=== PATIENT | male | born 1950 | race Caucasian/White ===

== ENCOUNTER 2016-12-15 09:00 | Inpatient (IN) ==
--- NOTE | 2016-12-11 14:10 | Cardiothoracic History & Phys ---
History of Present Illness Chief complaint: chest pain History of present illness: Mr. seals is a 56 year old male hospital with complaints of recent onset as part of his workup he underwent cardiac catheterization demonstrating critical coronary artery disease of significance is that he has a history of hypertension and hyperglycemia and hyperlipidemia. He also has type 2 diabetes mellitus. Past medical history: Medical diseases as noted in history of present illness: The patient has no significant surgical history. Patient is a lifetime nonsmoker and nondrinker. He does have a positive family history for premature coronary disease. He has no known allergies. Physical examination: Patient is well-developed well-nourished white male in no acute distress. Examination HEENT show the pupils are equal and react to light and extraocular motions are intact. The oropharynx is benign. Examination of the neck shows no masses and there is no thyromegaly or are there any bruits. Examination the chest shows that it is clear to percussion and auscultation and examination the heart reveals a regular sinus rhythm with no murmurs and no gallop rhythm. Examination the abdomen shows that it is soft and nontender and there is no organomegaly and there are no masses. Examination extremities shows there is no cyanosis or edema and a neurological examination is grossly within normal limits. The assessment: Coronary artery disease. Plan: Coronary artery bypass surgery on 12/16/2016
[~2016-12-15 09:00] MED LIST: DEXTROSE 50% 25 GM/50 ML VIAL IV PRN; GLUCAGON 1 MG VIAL IM PRN
--- NOTE | 2016-12-15 12:07 | EKG Report ---
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
[2016-12-15] MEDS: LISINOPRIL/HCTZ 10-12.5 MG TABLET PO SCH (12:36)
[2016-12-15] MEDS: SODIUM CHLORIDE 0.9% 1,000 ML IV SCH ×2 (12:36→14:57)
[2016-12-15 13:54] LABS: Basophils # 0.1 10*3/uL (0.0-0.2); Basophils % 1.1 % (0.0-0.8); Eosinophils # 0.4 10*3/uL (0.0-0.87); Eosinophils % 5.6 % (0.00-10.9); Hemoglobin 14.8 GM/DL (14.0-18.0); Immature Granulocytes % 0.3 %; Immature Granulocytes Absolute 0.02 #; Lymphocytes # 1.5 10*3/uL (1.4-4.0); Lymphocytes % 22.6 % (21.2-54.2); Mean Corpuscular HGB Conc 33.6 GM/DL (32-36); Mean Corpuscular Hemoglobin 29 PG (27-34); Mean Corpuscular Volume 87.5 FL (87-102); Monocytes # 0.4 10*3/uL (0.11-0.8); Monocytes % 6.5 % (1.7-12.7); Neutrophils # 4.3 10*3/uL (1.4-7.4); Neutrophils % 63.9 % (38.7-73.9); Platelet Count 206 T/CUMM (130-400); Red Blood Count 5.03 MC/CUMM (3.8-5.5); Red Cell Distribution Width 12.4 % (9.3-17.3); White Blood Count 6.6 T/CUMM (4-12)
[2016-12-15 14:10] LABS: ABG Base Excess 2.2 MMOL/L (-2.5-2.5); ABG Oxygen Saturation 95.4 % (95-100); ABG PH 7.453 (7.35-7.45); ABG PO2 77.2 MM HG (80-95); ABG TCO2 27.2 MMOL/L (23-27)
[2016-12-15] MEDS ORDERED: ACETAMINOPHEN 325 MG TABLET PO PRN (14:34)
[2016-12-15] MEDS ORDERED: oxyCODONE/ACETAMINOPHEN 5-325 MG TABLET PO PRN (14:34)
[2016-12-15] MEDS: CHLORHEXIDINE 4% SOLN 118 ML BOTTLE TOP SCH ×2 (14:56→20:56)
--- NOTE | 2016-12-15 15:43 | XRay Report ---
XR chest 2V Date: 12/15/2016 2:19 PM History: Coronary artery disease Comparison: None Technique: PA and lateral chest Findings: The heart is normal in size with calcification in the aortic knob. Calcified granulomata/nodes with probable minimal chronic scarring. Faint nipple shadow in the right lower lung zone. Unremarkable mediastinum with bridging anterior osteophytes. Impression: Evidence of granulomatous disease. No acute cardiopulmonary pathology identified. DISH. PROCEDURE INTERPRETED AT [facility] DEPARTMENT OF RADIOLOGY Final Report Signed by: Dr. Julia Potter
[2016-12-15] MEDS: METOPROLOL TARTRATE 25 MG TABLET PO SCH (20:55)
[2016-12-15] MEDS: CHLORHEXIDINE 0.12% ORAL RINSE 60 ML BOTTLE SWISH/SPIT SCH (20:56)
[2016-12-16] MEDS ORDERED: VANCOMYCIN 1,000 MG VIAL ONE (04:34)
[2016-12-16] MEDS ORDERED: PAPAVERINE 60 MG/2 ML VIAL ONE (04:34)
[2016-12-16 05:27] LABS: Partial Thromboplastin Time 27.4 SECS (0-40)
[2016-12-16] MEDS: METOPROLOL TARTRATE 25 MG TABLET PO SCH ×2 (05:31→10:14)
[2016-12-16] MEDS: LISINOPRIL/HCTZ 10-12.5 MG TABLET PO SCH ×2 (05:31→10:15)
[2016-12-16 05:32] LABS: Albumin 3.5 G/DL (3.4-5.0); Bilirubin,Total 1.5 MG/DL (0.2-1.0); Calcium 8.7 MG/DL (8.5-10.1); Osmolality,Calculated 293.8 MOS/KG (273-304); Potassium 4.3 MMOL/L (3.5-5.1); Total Protein 6.2 G/DL (6.4-8.3)
[2016-12-16] MEDS ORDERED: CEFUROXIME INJ 1,500 MG in SODIUM CHLORIDE 0.9% 100 ML IV ONE (06:00)
[2016-12-16] MEDS ORDERED: LORazepam 1 MG TABLET PO ONE (06:05)
[2016-12-16] MEDS ORDERED: LORazepam 1 MG TABLET ONE (06:06)
[2016-12-16] MEDS: CHLORHEXIDINE 4% SOLN 118 ML BOTTLE TOP SCH ×2 (06:37→10:14)
[2016-12-16] MEDS: CHLORHEXIDINE 0.12% ORAL RINSE 60 ML BOTTLE SWISH/SPIT SCH ×3 (06:37→20:25)
[2016-12-16] MEDS ORDERED: NITROGLYCERIN 50 MG/250 ML BOTTLE IV ONE (06:44)
[2016-12-16] MEDS ORDERED: PHENYLEPHRINE 20 MG/250 ML PREMIX IV ONE (06:44)
[2016-12-16] MEDS ORDERED: HEPARIN/NACL 0.9% 2 UNITS/ML 500 ML IV ONE ×2 (06:44→12:21)
[2016-12-16] MEDS ORDERED: MINERAL OIL/PETROLATUM OPH OINT 3.5 GM TUBE ONE ×2 (06:44→12:22)
[2016-12-16] MEDS ORDERED: CALCIUM CHLORIDE 1,000 MG/10 ML SYRINGE IV ONE ×3 (06:44→12:21)
[2016-12-16] MEDS ORDERED: VECURONIUM 10 MG VIAL IV ONE ×2 (06:44→12:22)
[2016-12-16] MEDS ORDERED: ETOMIDATE 20 MG/10 ML VIAL IV ONE ×2 (06:44→12:23)
[2016-12-16] MEDS ORDERED: AMINOCAPROIC ACID 5,000 MG/20 ML VIAL IV ONE ×2 (06:44→12:23)
[2016-12-16 07:40] LABS: ABG Base Excess 0.4 MMOL/L (-2.5-2.5); ABG HCO3 24.8 MMOL/L (20-26); ABG Oxygen Saturation 99.5 % (95-100); ABG PCO2 39.8 MM HG (35-48); ABG PH 7.407 (7.35-7.45); ABG TCO2 21.5 MMOL/L (23-27); Glucose Heart Surgery 279 MG/DL (74-106); Hematocrit Heart Surgery 43.7 PERCENT (42-52); Hemoglobin Heart Surgery 14.2 G/DL (14.0-18.0); Ionized Calcium Arterial 1.15 MMOL/L (1.21-1.46); PCO2 Patient Temp Arterial 39.8 MMHG; PH Patient Temp Arterial 7.407; Patient Temperature 37 CELCIUS; Potassium Heart/CVR 4.1 MMOL/L (3.5-5.1); Sodium Heart/CVR 135 MMOL/L (135-145)
[2016-12-16 07:48] LABS: Apearance,Urine CLEAR (Clear); Bilirubin,Urine Negative (Negative); Blood, Urine Small mg/dL (Negative); Glucose,Urine (UA) >=500 mg/dL (Negative); Ketones,Urine 5 mg/dL (Negative); Mucus,Urine Occasional /LPF (Occasional); Nitrite,Urine Negative (Negative); Protein,Urine Negative; RBC,Urine 8 /HPF (0-4); Urine Color Yellow (Yellow); Urine Urobilinogen < 2.0 EU/DL (0.2-1.0); WBC,Urine <1 /HPF (0-6)
[2016-12-16] MEDS ORDERED: PHENYLEPHRINE DRIP 40 MG/250 ML PREMIX IV ONE (08:46)
[2016-12-16] MEDS ORDERED: NITROPRUSSIDE 50 MG/2 ML VIAL ONE (08:46)
[2016-12-16] MEDS ORDERED: POTASSIUM CHLORIDE RIDER 100 ML IV ONE (08:46)
[2016-12-16] MEDS ORDERED: ALBUMIN 5% 12.5 GM/250 ML VIAL IV ONE (08:47)
[2016-12-16] MEDS ORDERED: SODIUM BICARBONATE 50 MEQ/50 ML SYRINGE IV ONE ×2 (08:47→10:47)
[2016-12-16 09:28] LABS: Hematocrit Heart Surgery 35.1 PERCENT (42-52); Hemoglobin Heart Surgery 11.4 G/DL (14.0-18.0); PCO2 Patient Temp Venous 42.5 MM HG; PH Patient Temp Venous 7.397; PO2 Patient Temp Venous 36.9 MM HG; Potassium Heart/CVR 5.1 MMOL/L (3.5-5.1); VBG Base Excess 1.1 MEQ/L (0-4); VBG Oxygen Saturation 77.5 %; VBG PCO2 46.8 MMHG (41-51); VBG PH 7.368; VBG PO2 42.4 MMHG (17-40)
[2016-12-16] MEDS ORDERED: INSULIN REGULAR 100 UNIT/ML ONE (09:44)
[2016-12-16 10:06] LABS: Hematocrit Heart Surgery 36.3 PERCENT (42-52); Hemoglobin Heart Surgery 11.8 G/DL (14.0-18.0); PH Patient Temp Venous 7.395; PO2 Patient Temp Venous 35.2 MM HG; Potassium Heart/CVR 4.4 MMOL/L (3.5-5.1); VBG Base Excess 1.2 MEQ/L (0-4); VBG Oxygen Saturation 71.3 %; VBG PCO2 45.2 MMHG (41-51); VBG PH 7.381; VBG PO2 37.8 MMHG (17-40)
[2016-12-16 10:43] LABS: ABG Base Excess -1.1 MMOL/L (-2.5-2.5); ABG HCO3 23.5 MMOL/L (20-26); ABG Oxygen Saturation 99.5 % (95-100); ABG PH 7.336 (7.35-7.45); ABG TCO2 22.4 MMOL/L (23-27); Glucose Heart Surgery 258 MG/DL (74-106); Hematocrit Heart Surgery 37.5 PERCENT (42-52); Hemoglobin Heart Surgery 12.2 G/DL (14.0-18.0); Ionized Calcium Arterial 1.24 MMOL/L (1.21-1.46); PH Patient Temp Arterial 7.336; Patient Temperature 37 CELCIUS; Potassium Heart/CVR 4.6 MMOL/L (3.5-5.1); Sodium Heart/CVR 133 MMOL/L (135-145)
[2016-12-16] MEDS ORDERED: PROTAMINE SULFATE 250 MG/25 ML VIAL IV ONE (10:47)
[2016-12-16] MEDS ORDERED: MAGNESIUM SULFATE 1 GM/2 ML VIAL ONE (10:47)
[2016-12-16] MEDS ORDERED: HEPARIN 10,000 UNIT/10 ML VIAL ONE ×2 (10:47→10:51)
[2016-12-16] MEDS ORDERED: ALBUMIN 25% 25 GM/100 ML VIAL IV ONE (10:47)
[2016-12-16] MEDS ORDERED: DEXTROSE 5% KCL 20 MEQ 20 MEQ/1,000 ML BAG IV ONE (10:47)
[2016-12-16] MEDS ORDERED: PHENYLEPHRINE DRIP 20 MG/250 ML PREMIX IV ONE ×2 (10:47→12:21)
[2016-12-16] MEDS ORDERED: FUROSEMIDE 20 MG/2 ML VIAL ONE (10:48)
[2016-12-16] MEDS ORDERED: MANNITOL 12.5 GM/50 ML VIAL IV ONE (10:48)
[2016-12-16] MEDS ORDERED: PROTAMINE SULFATE 50 MG/5 ML VIAL IV ONE (10:48)
[2016-12-16] MEDS ORDERED: methylPREDNISolone SOD SUC 1,000 MG/8 ML VIAL ONE (10:48)
[2016-12-16] MEDS ORDERED: INSULIN REGULAR DRIP 100 ML IV ONE (11:00)
[2016-12-16] MEDS ORDERED: MORPHINE 10 MG/1 ML VIAL IV PRN (11:20)
[2016-12-16] MEDS ORDERED: MAGNESIUM SULF RIDER 4 GM in PREMIX 1 EACH IV PRN (11:20)
[2016-12-16] MEDS ORDERED: CALCIUM CHLORIDE 1,000 MG/10 ML SYRINGE IV PRN (11:20)
[2016-12-16] MEDS ORDERED: MIDAZOLAM 10 MG/2 ML VIAL IV PRN (11:20)
[2016-12-16] MEDS ORDERED: DEXTROSE 50% 25 GM/50 ML VIAL IV PRN ×2 (11:20)
[2016-12-16] MEDS ORDERED: MORPHINE 2 MG/1 ML SYRINGE IV PRN (11:20)
[2016-12-16] MEDS ORDERED: ONDANSETRON 4 MG/2 ML VIAL IV PRN (11:20)
[2016-12-16] MEDS ORDERED: VECURONIUM 10 MG VIAL IV PRN ×2 (11:20)
[2016-12-16] MEDS ORDERED: NITROPRUSSIDE 100 MG in DEXTROSE 5% 250 ML IV PRN (11:20)
[2016-12-16] MEDS ORDERED: MAGNESIUM SULF RIDER 2 GM in PREMIX 1 EACH IV PRN (11:20)
[2016-12-16] MEDS ORDERED: LACTATED RINGERS 250 ML IV PRN (11:20)
[2016-12-16] MEDS ORDERED: ACETAMINOPHEN 650 MG SUPP RECTAL PRN (11:20)
[2016-12-16] MEDS ORDERED: PHENYLEPHRINE DRIP 40 MG/250 ML PREMIX IV PRN (11:20)
[2016-12-16] MEDS ORDERED: INSULIN REGULAR 100 UNIT/ML IV ONE (11:20)
[2016-12-16] MEDS ORDERED: MIDAZOLAM 2 MG/2 ML VIAL IV PRN (11:20)
--- NOTE | 2016-12-16 11:27 | Operative Note ---
Date of procedure: 12/16/16 Pre-op diagnosis: coronary artery disease Post-op diagnosis: same Procedure: Procedure: Coronary bypass grafting 2 with saphenous vein graft to the obtuse marginal and right coronary arteries. Findings: Patient is 66-year-old man who presented to [facility] with substernal chest discomfort. Cardiac catheterization demonstrated critical disease of the right coronary artery and circumflex marginal coronary artery with only minimal to moderate disease of the anterior descending coronary artery. At the time of surgery left ventricular function function was normal and 2 saphenous vein grafts were placed to a large obtuse marginal and a large main right coronary artery which were both relatively free of disease at the site of anastomosis. Patient tolerated procedure well and returned recovery in satisfactory condition. Procedure: Patient was brought to the operating room placed on the operating table in the supine position. After satisfactory induction of general anesthesia the chest abdomen and legs were prepped and draped in sterile fashion. Greater saphenous vein was harvested from each lower leg and prepared as an arterial graft. The incisions in the leg were closed with 3-0 subcutaneous Monopril and 3-0 subcuticular Monocryl. Standard sternotomy incision was made and the sternum was divided and the heart suspended in a pericardial cradle. The heart was prepared for cardiopulmonary bypass with systemic heparinization and cannulation of the ascending aorta and right atrium. Cardiopulmonary bypass was begun and the aorta was crossclamped and the heart arrested with cardioplegia solution injected into the aortic root. Heart was protected during the period of crossclamping with topical saline slush. After completion of the distal anastomoses described above the aorta was unclamped reestablishing cardiac action. Proximal anastomoses were constructed between the inflow ends of the grafts and the ascending aorta. Patient was with then weaned from cardiopulmonary bypass without difficulty. Heparin effect was reversed with protamine and decannulation carried out with the defects in the ascending aorta and right atrium closed with 3-0 Prolene. Heparin effect was reversed with protamine as noted above and the operative field inspected for hemostasis when this was considered adequate the incision was closed with interrupted stainless steel wire and the sternum and 0 Monopril and the presternal fascia. Skin was closed with 3-0 subcuticular Monocryl. 2 chest tubes were left in the anterior mediastinum and brought out through separate stab incisions. Patient was returned to recovery in satisfactory condition. Anesthesia: GETA Surgeon / Physician: Chris Gama Estimated blood loss: other Specimens: none sent (unable to determine because of cardiopulmonary bypass) Condition: stable Disposition: ICU Results - Labs CBC & BMP: 12/16/16 10:42 12/16/16 04:12 Discharge Plan - Discharge Medications No Action hydrALAZINE TAB [Apresoline Tab] 25 mg PO TID Metoprolol Tartrate Tab [Lopressor Tab] 25 mg PO BID Isosorbide Mononitrate [Imdur] 30 mg PO DAILY Rosuvastatin Calcium [Crestor] 5 mg PO BEDTIME Lisinopril/Hydrochlorothiazide [Lisinopril-Hctz 10-12.5 mg Tab] 2 tablet PO DAILY - Follow Up or Referral - Forms/Instructions
[2016-12-16] MEDS: SODIUM CHLORIDE 0.45% 1,000 ML IV SCH ×2 (11:30)
[2016-12-16 11:57] LABS: ABG Base Excess 0.2 MMOL/L (-2.5-2.5); ABG HCO3 24.5 MMOL/L (20-26); ABG Oxygen Saturation 93.9 % (95-100); ABG PCO2 36.5 MM HG (35-48); ABG PH 7.428 (7.35-7.45); ABG PO2 66.1 MM HG (80-95); ABG TCO2 21.1 MMOL/L (23-27); Glucose Heart Surgery 223 MG/DL (74-106); Hematocrit Heart Surgery 39.5 PERCENT (42-52); Hemoglobin Heart Surgery 12.8 G/DL (14.0-18.0); Potassium Heart/CVR 3.9 MMOL/L (3.5-5.1)
[2016-12-16 11:58] LABS: Basophils % 0.4 % (0.0-0.8); Eosinophils # 0.1 10*3/uL (0.0-0.87); Eosinophils % 1.6 % (0.00-10.9); Hematocrit 37.9 VOL% (42.0-52.0); Hemoglobin 12.7 GM/DL (14.0-18.0); Immature Granulocytes % 0.6 %; Immature Granulocytes Absolute 0.05 #; Lymphocytes # 0.7 10*3/uL (1.4-4.0); Lymphocytes % 7.5 % (21.2-54.2); Mean Corpuscular HGB Conc 33.5 GM/DL (32-36); Mean Corpuscular Hemoglobin 30 PG (27-34); Mean Corpuscular Volume 88.3 FL (87-102); Mean Platelet Volume 11.1 FL (9.6-12.0); Monocytes # 0.3 10*3/uL (0.11-0.8); Monocytes % 3.7 % (1.7-12.7); Neutrophils # 7.8 10*3/uL (1.4-7.4); Neutrophils % 86.2 % (38.7-73.9); Platelet Count 168 T/CUMM (130-400); Red Blood Count 4.29 MC/CUMM (3.8-5.5); Red Cell Distribution Width 12.4 % (9.3-17.3)
[2016-12-16] MEDS: LACTATED RINGERS 1,000 ML IV PRN ×2 (12:00→15:15)
[2016-12-16] MEDS ORDERED: LACTATED RINGERS 1,000 ML IV ONE ×2 (12:00→12:23)
[2016-12-16 12:07] LABS: INR 1.2; PT Patient Result 12.6 SECS; Partial Thromboplastin Time 29.2 SECS (0-40)
[2016-12-16] MEDS: POTASSIUM CHLORIDE RIDER 20 MEQ in PREMIX 1 EACH IV PRN ×7 (12:15→22:16)
[2016-12-16] MEDS: INSULIN REGULAR DRIP 100 ML IV SCH ×2 (12:15→20:21)
[2016-12-16] MEDS ORDERED: SEVOFLURANE 1 UNIT/15 MINUTE INH ONE (12:21)
[2016-12-16] MEDS ORDERED: SUFentanil 250 MCG/5 ML AMP ONE (12:22)
[2016-12-16] MEDS ORDERED: ePHEDrine 50 MG/ML AMP ONE (12:22)
[2016-12-16] MEDS ORDERED: MIDAZOLAM 10 MG/2 ML VIAL ONE ×2 (12:22)
[2016-12-16] MEDS ORDERED: SODIUM CHLORIDE 0.9% 100 ML IV ONE (12:23)
[2016-12-16] MEDS ORDERED: SODIUM CHLORIDE 0.9% 250 ML IV ONE (12:23)
[2016-12-16] MEDS ORDERED: SODIUM CHLORIDE 0.9% 1,000 ML IV ONE (12:23)
[2016-12-16 12:30] LABS: Albumin 3.2 G/DL (3.4-5.0); Bilirubin,Total 1.3 MG/DL (0.2-1.0); Calcium 8.7 MG/DL (8.5-10.1); Magnesium 2.1 MG/DL (1.8-2.4); Potassium 4.1 MMOL/L (3.5-5.1); Total Protein 5.3 G/DL (6.4-8.3)
[2016-12-16] MEDS: KETOROLAC 30 MG/1 ML VIAL IV SCH ×2 (12:38→17:39)
[2016-12-16] MEDS: POTASSIUM CHLORIDE RIDER 10 MEQ in PREMIX 1 EACH IV PRN ×6 (12:45→22:55)
[2016-12-16 12:46] LABS: CKMB % 6.2 %
[2016-12-16 12:49] LABS: Troponin I Only 1.63 NG/ML (0.00-0.045)
--- NOTE | 2016-12-16 12:52 | XRay Report ---
History: Line placement Date: 12/16/2016 at 11:57 AM Study: Chest x-ray AP portable Comparison exam: 12/15/2016 The patient has undergone interval median sternotomy. The endotracheal tube is well-positioned with its tip over the trachea at the T3 level. The nasogastric tube traverses the esophagus. A right IJ central line is positioned with its tip over the superior vena cava region. Chest drainage tubes overlie the mediastinum. There is mild enlargement of the cardiac silhouette. The mediastinal contours are stable for postsurgical appearance and shallow breath. There is no gross pulmonary vascular engorgement. There is no pneumothorax. There is no gross pleural effusion. There is mild strandy atelectatic change in the right infrahilar region more so than the left lower lobe. The lungs are otherwise grossly clear for shallow breath. There is moderate thoracic spondylosis. Impression: Satisfactory positioning of the supporting tubes. No evidence of a pneumothorax. Mild bibasilar postoperative atelectasis PROCEDURE INTERPRETED AT [facility] DEPARTMENT OF RADIOLOGY Final Report Signed by: Dr. Anjelica Santiago
[2016-12-16] MEDS: ALBUMIN 5% 12.5 GM in PREMIX 1 EACH IV PRN ×2 (13:00→15:45)
[2016-12-16 13:26] LABS: ABG HCO3 24.5 MMOL/L (20-26); ABG Oxygen Saturation 99.4 % (95-100); ABG PCO2 35.6 MM HG (35-48); ABG PH 7.433 (7.35-7.45); ABG TCO2 20.5 MMOL/L (23-27); Glucose Heart Surgery 165 MG/DL (74-106); Hematocrit Heart Surgery 41.6 PERCENT (42-52); Hemoglobin Heart Surgery 13.6 G/DL (14.0-18.0); Potassium Heart/CVR 3.6 MMOL/L (3.5-5.1)
[2016-12-16 15:21] LABS: ABG HCO3 24.5 MMOL/L (20-26); ABG Oxygen Saturation 99.6 % (95-100); ABG PCO2 38.3 MM HG (35-48); ABG PH 7.412 (7.35-7.45); Glucose Heart Surgery 181 MG/DL (74-106); Potassium Heart/CVR 3.7 MMOL/L (3.5-5.1)
[2016-12-16 16:17] LABS: ABG Base Excess -1.4 MMOL/L (-2.5-2.5); ABG HCO3 23.2 MMOL/L (20-26); ABG Oxygen Saturation 98.8 % (95-100); ABG PH 7.423 (7.35-7.45); ABG TCO2 19.2 MMOL/L (23-27); Glucose Heart Surgery 222 MG/DL (74-106); Hematocrit Heart Surgery 41.6 PERCENT (42-52); Hemoglobin Heart Surgery 13.6 G/DL (14.0-18.0); Potassium Heart/CVR 3.9 MMOL/L (3.5-5.1)
[2016-12-16] MEDS: INSULIN REGULAR 100 UNIT/ML IV PRN ×2 (16:33→18:05)
--- NOTE | 2016-12-16 16:47 | Anesthesia ---
Anesthesia Post OP - Post Ansesthetic Evaluation Patient seen in post op: Yes Resp: within normal limits (vent) CV: within normal limits Mental: within normal limits Temp: within normal limits Ipfr-Ct-Rhfazvnqy: within normal limits Nausea and Vomiting: within normal limits Pain: within normal limits
[2016-12-16 17:06] LABS: ABG Base Excess -1.2 MMOL/L (-2.5-2.5); ABG HCO3 23.4 MMOL/L (20-26); ABG Oxygen Saturation 97.9 % (95-100); ABG PCO2 33.4 MM HG (35-48); ABG PH 7.433 (7.35-7.45); ABG PO2 98.3 MM HG (80-95); ABG TCO2 19.4 MMOL/L (23-27); Glucose Heart Surgery 206 MG/DL (74-106); Hematocrit Heart Surgery 40.4 PERCENT (42-52); Hemoglobin Heart Surgery 13.1 G/DL (14.0-18.0); Potassium Heart/CVR 3.9 MMOL/L (3.5-5.1)
[2016-12-16 17:56] LABS: ABG Base Excess -1.7 MMOL/L (-2.5-2.5); ABG Oxygen Saturation 98.3 % (95-100); ABG PCO2 40.5 MM HG (35-48); ABG PH 7.371 (7.35-7.45); ABG TCO2 20.4 MMOL/L (23-27); Glucose Heart Surgery 202 MG/DL (74-106); Hematocrit Heart Surgery 41.2 PERCENT (42-52); Hemoglobin Heart Surgery 13.4 G/DL (14.0-18.0); Potassium Heart/CVR 3.2 MMOL/L (3.5-5.1)
[2016-12-16] MEDS: CEFUROXIME INJ 1,500 MG in SODIUM CHLORIDE 0.9% 100 ML IV SCH (20:24)
[2016-12-16 20:25] LABS: ABG Base Excess -0.7 MMOL/L (-2.5-2.5); ABG HCO3 23.8 MMOL/L (20-26); ABG Oxygen Saturation 97.7 % (95-100); ABG PCO2 41.8 MM HG (35-48); ABG PH 7.375 (7.35-7.45); ABG TCO2 21.5 MMOL/L (23-27); Glucose Heart Surgery 146 MG/DL (74-106); Hematocrit Heart Surgery 39.2 PERCENT (42-52); Hemoglobin Heart Surgery 12.8 G/DL (14.0-18.0); Potassium Heart/CVR 3.8 MMOL/L (3.5-5.1)
[2016-12-16 21:48] LABS: ABG Base Excess -1.2 MMOL/L (-2.5-2.5); ABG HCO3 23.4 MMOL/L (20-26); ABG PCO2 39.6 MM HG (35-48); ABG PH 7.384 (7.35-7.45); ABG PO2 89.5 MM HG (80-95); ABG TCO2 20.6 MMOL/L (23-27); Glucose Heart Surgery 132 MG/DL (74-106); Hemoglobin Heart Surgery 13.4 G/DL (14.0-18.0); Potassium Heart/CVR 3.7 MMOL/L (3.5-5.1)
[2016-12-16 22:04] LABS: CKMB % 5.8 %
[2016-12-16 22:06] LABS: Troponin I Only 2.16 NG/ML (0.00-0.045)
[2016-12-16] MEDS ORDERED: FUROSEMIDE 40 MG/4 ML VIAL IV ONE (22:14)
[2016-12-16 23:53] LABS: ABG Base Excess -1.1 MMOL/L (-2.5-2.5); ABG HCO3 23.5 MMOL/L (20-26); ABG Oxygen Saturation 96.2 % (95-100); ABG PCO2 39.1 MM HG (35-48); ABG PO2 79.1 MM HG (80-95); ABG TCO2 20.6 MMOL/L (23-27); Glucose Heart Surgery 125 MG/DL (74-106); Hematocrit Heart Surgery 40.7 PERCENT (42-52); Hemoglobin Heart Surgery 13.3 G/DL (14.0-18.0); Potassium Heart/CVR 3.8 MMOL/L (3.5-5.1)
[2016-12-17] MEDS: POTASSIUM CHLORIDE RIDER 20 MEQ in PREMIX 1 EACH IV PRN ×2 (00:25→04:54)
[2016-12-17] MEDS: KETOROLAC 30 MG/1 ML VIAL IV SCH ×3 (00:25→15:51)
[2016-12-17 00:48] LABS: ABG Base Excess 0.4 MMOL/L (-2.5-2.5); ABG HCO3 24.7 MMOL/L (20-26); ABG Oxygen Saturation 95.2 % (95-100); ABG PH 7.399 (7.35-7.45); ABG PO2 72.1 MM HG (80-95); Glucose Heart Surgery 107 MG/DL (74-106); Hematocrit Heart Surgery 40.7 PERCENT (42-52); Hemoglobin Heart Surgery 13.2 G/DL (14.0-18.0)
[2016-12-17] MEDS: POTASSIUM CHLORIDE RIDER 10 MEQ in PREMIX 1 EACH IV PRN (01:05)
[2016-12-17] MEDS: INSULIN REGULAR DRIP 100 ML IV SCH ×2 (02:18→15:51)
[2016-12-17 03:28] LABS: ABG Base Excess 1.1 MMOL/L (-2.5-2.5); ABG HCO3 25.3 MMOL/L (20-26); ABG Oxygen Saturation 96.6 % (95-100); ABG PCO2 40.2 MM HG (35-48); ABG PH 7.414 (7.35-7.45); ABG PO2 80.4 MM HG (80-95); ABG TCO2 22.4 MMOL/L (23-27); Glucose Heart Surgery 101 MG/DL (74-106); Hematocrit Heart Surgery 40.2 PERCENT (42-52); Hemoglobin Heart Surgery 13.1 G/DL (14.0-18.0)
[2016-12-17 03:44] LABS: Basophils % 0.2 % (0.0-0.8); Hemoglobin 12.6 GM/DL (14.0-18.0); Immature Granulocytes % 0.4 %; Immature Granulocytes Absolute 0.07 #; Lymphocytes # 0.4 10*3/uL (1.4-4.0); Lymphocytes % 2.4 % (21.2-54.2); Mean Corpuscular HGB Conc 34.1 GM/DL (32-36); Mean Corpuscular Hemoglobin 29 PG (27-34); Mean Platelet Volume 11.5 FL (9.6-12.0); Monocytes # 0.7 10*3/uL (0.11-0.8); Monocytes % 4.3 % (1.7-12.7); Neutrophils # 15.9 10*3/uL (1.4-7.4); Neutrophils % 92.7 % (38.7-73.9); Platelet Count 204 T/CUMM (130-400); Red Cell Distribution Width 12.6 % (9.3-17.3); White Blood Count 17.2 T/CUMM (4-12)
[2016-12-17 04:04] LABS: ABG Base Excess 0.5 MMOL/L (-2.5-2.5); ABG HCO3 24.6 MMOL/L (20-26); ABG Oxygen Saturation 95.8 % (95-100); ABG PCO2 38.1 MM HG (35-48); ABG PH 7.428 (7.35-7.45); ABG PO2 76.6 MM HG (80-95); ABG TCO2 25.8 MMOL/L (23-27); Glucose Heart Surgery 98 MG/DL (74-106); Hemoglobin Heart Surgery 13.4 G/DL (14.0-18.0); Potassium Heart/CVR 3.9 MMOL/L (3.5-5.1)
[2016-12-17 04:33] LABS: Band Neutrophils 2 % (0-10); Hypochromasia Slight; Lymphocytes 6 % (20-55); Platelet Estimate Normal; Segmented Neutrophils 90 % (50-85); Total Cells Counted 100
[2016-12-17 04:34] LABS: CKMB % 5.4 %
[2016-12-17 04:35] LABS: Troponin I Only 1.77 NG/ML (0.00-0.045)
[2016-12-17 04:36] LABS: Albumin 3.4 G/DL (3.4-5.0); Bilirubin,Direct 0.2 MG/DL (0.0-0.20); Bilirubin,Total 0.8 MG/DL (0.2-1.0); Calcium 8.6 MG/DL (8.5-10.1); Magnesium 1.9 MG/DL (1.8-2.4); Osmolality,Calculated 292.6 MOS/KG (273-304); Potassium 4.2 MMOL/L (3.5-5.1); Total Protein 5.5 G/DL (6.4-8.3)
--- NOTE | 2016-12-17 05:48 | Cardiothoracic Progress Note ---
Cardiothoracic Subjective Interval history: Patient is awake alert and extubated. Vital signs of been stable through the night and are stable morning with adequate blood gases following extubation. Chest tube drainage is minimal and his chest tubes are removed. Renal function is been good with a normal creatinine this morning. I think he can be transferred to telemetry later this morning. Exam (Progress Note) - Constitutional Vitals: Period Temp Pulse Resp BP Sys/Gomez Pulse Ox Last 24 Hr 96.7 F-98.5 F 60-88 10-14 109-164/46-83 94-100 Result/EKG - Labs CBC & BMP: 12/17/16 03:30 12/17/16 03:20 Labs: Laboratory Results - last 24 hr 12/15/16 12/15/16 12/16/16 13:39 16:45 07:00 WBC RBC Hgb Hct MCV MCH MCHC RDW Plt Count MPV Neut % (Auto) Lymph % (Auto) [place] % (Auto) Eos % (Auto) Baso % (Auto) Neut # (Auto) Lymph # (Auto) [place] # (Auto) Eos # (Auto) Baso # (Auto) Total Counted Immature Gran % Nucleated RBC % Immature Gran # Segmented Neutrophils Band Neutrophils Lymphocytes Monocytes Nucleated RBCs # Platelet Estimate Hypochromasia Morphology Comment INR PT Patient/Control Mix Circ Anticoag PTT Patient Temperature ABG pH ABG pH at Pt Temp ABG pCO2 ABG pCO2 at Pt Temp ABG pO2 ABG pO2 at Pt Temp ABG HCO3 ABG Total CO2 ABG O2 Saturation ABG Base Excess ABG Sodium VBG pH VBG pCO2 VBG pO2 VBG HCO3 VBG Total CO2 VBG O2 Saturation VBG Base Excess Hemoglobin Hematocrit Potassium Glucose Ionized Calcium FiO2 Sodium Chloride Carbon Dioxide Anion Gap BUN Creatinine GFR Calculation BUN/Creatinine Ratio POC Glucose 258 H Calculated Osmolality Calcium Venous Ioniz Calcium Magnesium Total Bilirubin Direct Bilirubin AST ALT Alkaline Phosphatase Total Creatine Kinase CK-MB (CK-2) CK and CKMB Interp Troponin I Total Protein Albumin Globulin Albumin/Globulin Ratio Urine Color Yellow Urine Appearance Clear Urine pH 6.0 Ur Specific [place] 1.010 Urine Protein Negative Urine Glucose (UA) >=500 Urine Ketones 5 Urine Blood Small Urine Nitrate Negative Urine Bilirubin Negative Urine Urobilinogen < 2.0 H Urine Leukocytes Negative Urine RBC 8 Urine WBC <1 Urine Mucus Occasional Ur Culture Indicated? Not indicated Blood Type A POSITIVE Antibody Screen Negative Crossmatch See Detail 12/16/16 12/16/16 12/16/16 07:39 07:39 09:29 WBC RBC Hgb Hct MCV MCH MCHC RDW Plt Count 159 D MPV Neut % (Auto) Lymph % (Auto) [place] % (Auto) Eos % (Auto) Baso % (Auto) Neut # (Auto) Lymph # (Auto) [place] # (Auto) Eos # (Auto) Baso # (Auto) Total Counted Immature Gran % Nucleated RBC % Immature Gran # Segmented Neutrophils Band Neutrophils Lymphocytes Monocytes Nucleated RBCs # Platelet Estimate Hypochromasia Morphology Comment INR PT Patient/Control Mix Circ Anticoag PTT Patient Temperature 37 35 ABG pH 7.407 ABG pH at Pt Temp 7.407 7.397 ABG pCO2 39.8 ABG pCO2 at Pt Temp 39.8 42.5 ABG pO2 232.0 H ABG pO2 at Pt Temp 232.0 36.9 ABG HCO3 24.8 ABG Total CO2 21.5 L ABG O2 Saturation 99.5 ABG Base Excess 0.4 ABG Sodium 135 131 L VBG pH 7.368 VBG pCO2 46.8 VBG pO2 42.4 H VBG HCO3 25.0 VBG Total CO2 24.3 VBG O2 Saturation 77.5 VBG Base Excess 1.1 Hemoglobin 14.2 11.4 L D Hematocrit 43.7 35.1 L Potassium 4.1 5.1 Glucose 279 H 396 H Ionized Calcium 1.15 L FiO2 80.00 Sodium Chloride Carbon Dioxide Anion Gap BUN Creatinine GFR Calculation BUN/Creatinine Ratio POC Glucose Calculated Osmolality Calcium Venous Ioniz Calcium 1.06 L Magnesium Total Bilirubin Direct Bilirubin AST ALT Alkaline Phosphatase Total Creatine Kinase CK-MB (CK-2) CK and CKMB Interp Troponin I Total Protein Albumin Globulin Albumin/Globulin Ratio Urine Color Urine Appearance Urine pH Ur Specific [place] Urine Protein Urine Glucose (UA) Urine Ketones Urine Blood Urine Nitrate Urine Bilirubin Urine Urobilinogen Urine Leukocytes Urine RBC Urine WBC Urine Mucus Ur Culture Indicated? Blood Type Antibody Screen Crossmatch 12/16/16 12/16/16 12/16/16 10:05 10:42 10:42 WBC RBC Hgb Hct MCV MCH MCHC RDW Plt Count 115 L D MPV Neut % (Auto) Lymph % (Auto) [place] % (Auto) Eos % (Auto) Baso % (Auto) Neut # (Auto) Lymph # (Auto) [place] # (Auto) Eos # (Auto) Baso # (Auto) Total Counted Immature Gran % Nucleated RBC % Immature Gran # Segmented Neutrophils Band Neutrophils Lymphocytes Monocytes Nucleated RBCs # Platelet Estimate Hypochromasia Morphology Comment INR PT Patient/Control Mix Circ Anticoag PTT Patient Temperature 36 37 ABG pH 7.336 L ABG pH at Pt Temp 7.395 7.336 ABG pCO2 47.0 ABG pCO2 at Pt Temp 43.0 47.0 ABG pO2 233.0 H ABG pO2 at Pt Temp 35.2 233.0 ABG HCO3 23.5 ABG Total CO2 22.4 L ABG O2 Saturation 99.5 ABG Base Excess -1.1 ABG Sodium 132 L 133 L VBG pH 7.381 VBG pCO2 45.2 VBG pO2 37.8 VBG HCO3 25.0 VBG Total CO2 24.0 VBG O2 Saturation 71.3 VBG Base Excess 1.2 Hemoglobin 11.8 L 12.2 L Hematocrit 36.3 L 37.5 L Potassium 4.4 4.6 Glucose 355 H 258 H Ionized Calcium 1.24 FiO2 80.00 Sodium Chloride Carbon Dioxide Anion Gap BUN Creatinine GFR Calculation BUN/Creatinine Ratio POC Glucose Calculated Osmolality Calcium Venous Ioniz Calcium 1.08 L Magnesium Total Bilirubin Direct Bilirubin AST ALT Alkaline Phosphatase Total Creatine Kinase CK-MB (CK-2) CK and CKMB Interp Troponin I Total Protein Albumin Globulin Albumin/Globulin Ratio Urine Color Urine Appearance Urine pH Ur Specific [place] Urine Protein Urine Glucose (UA) Urine Ketones Urine Blood Urine Nitrate Urine Bilirubin Urine Urobilinogen Urine Leukocytes Urine RBC Urine WBC Urine Mucus Ur Culture Indicated? Blood Type Antibody Screen Crossmatch 12/16/16 12/16/16 12/16/16 11:45 11:45 11:55 WBC 9.0 D RBC 4.29 Hgb 12.7 L D Hct 37.9 L MCV 88.3 MCH 30 MCHC 33.5 RDW 12.4 Plt Count 168 D MPV 11.1 Neut % (Auto) 86.2 H Lymph % (Auto) 7.5 L [place] % (Auto) 3.7 Eos % (Auto) 1.6 Baso % (Auto) 0.4 Neut # (Auto) 7.8 H Lymph # (Auto) 0.7 L [place] # (Auto) 0.3 Eos # (Auto) 0.1 Baso # (Auto) 0.0 Total Counted Immature Gran % 0.6 Nucleated RBC % 0.0 Immature Gran # 0.05 Segmented Neutrophils Band Neutrophils Lymphocytes Monocytes Nucleated RBCs # 0.00 Platelet Estimate Hypochromasia Morphology Comment INR 1.2 PT Patient/Control Mix 12.6 Circ Anticoag PTT 29.2 Patient Temperature ABG pH ABG pH at Pt Temp ABG pCO2 ABG pCO2 at Pt Temp ABG pO2 ABG pO2 at Pt Temp ABG HCO3 ABG Total CO2 ABG O2 Saturation ABG Base Excess ABG Sodium VBG pH VBG pCO2 VBG pO2 VBG HCO3 VBG Total CO2 VBG O2 Saturation VBG Base Excess Hemoglobin Hematocrit Potassium 4.1 Glucose 219 H Ionized Calcium FiO2 Sodium 143 Chloride 107 Carbon Dioxide 26 Anion Gap 14.1 BUN 15 Creatinine 1.00 GFR Calculation 115 BUN/Creatinine Ratio 15.00 POC Glucose Calculated Osmolality 292.0 Calcium 8.7 Venous Ioniz Calcium Magnesium 2.1 Total Bilirubin 1.30 H Direct Bilirubin AST 36 ALT 10 L Alkaline Phosphatase 75 Total Creatine Kinase CK-MB (CK-2) CK and CKMB Interp Troponin I Total Protein 5.3 L Albumin 3.2 L Globulin 2.1 L Albumin/Globulin Ratio 1.5 Urine Color Urine Appearance Urine pH Ur Specific [place] Urine Protein Urine Glucose (UA) Urine Ketones Urine Blood Urine Nitrate Urine Bilirubin Urine Urobilinogen Urine Leukocytes Urine RBC Urine WBC Urine Mucus Ur Culture Indicated? Blood Type Antibody Screen Crossmatch 12/16/16 12/16/16 12/16/16 11:55 11:55 13:15 WBC RBC Hgb Hct MCV MCH MCHC RDW Plt Count MPV Neut % (Auto) Lymph % (Auto) [place] % (Auto) Eos % (Auto) Baso % (Auto) Neut # (Auto) Lymph # (Auto) [place] # (Auto) Eos # (Auto) Baso # (Auto) Total Counted Immature Gran % Nucleated RBC % Immature Gran # Segmented Neutrophils Band Neutrophils Lymphocytes Monocytes Nucleated RBCs # Platelet Estimate Hypochromasia Morphology Comment INR PT Patient/Control Mix Circ Anticoag PTT Patient Temperature ABG pH 7.428 7.433 ABG pH at Pt Temp ABG pCO2 36.5 35.6 ABG pCO2 at Pt Temp ABG pO2 66.1 L 163.0 H ABG pO2 at Pt Temp ABG HCO3 24.5 24.5 ABG Total CO2 21.1 L 20.5 L ABG O2 Saturation 93.9 L 99.4 ABG Base Excess 0.2 0.0 ABG Sodium VBG pH VBG pCO2 VBG pO2 VBG HCO3 VBG Total CO2 VBG O2 Saturation VBG Base Excess Hemoglobin 12.8 L 13.6 L Hematocrit 39.5 L 41.6 L Potassium 3.9 3.6 Glucose 223 H 165 H Ionized Calcium FiO2 Sodium Chloride Carbon Dioxide Anion Gap BUN Creatinine GFR Calculation BUN/Creatinine Ratio POC Glucose Calculated Osmolality Calcium Venous Ioniz Calcium Magnesium Total Bilirubin Direct Bilirubin AST ALT Alkaline Phosphatase Total Creatine Kinase 149 CK-MB (CK-2) 9.2 H CK and CKMB Interp 6.2 Troponin I 1.630 H Total Protein Albumin Globulin Albumin/Globulin Ratio Urine Color Urine Appearance Urine pH Ur Specific [place] Urine Protein Urine Glucose (UA) Urine Ketones Urine Blood Urine Nitrate Urine Bilirubin Urine Urobilinogen Urine Leukocytes Urine RBC Urine WBC Urine Mucus Ur Culture Indicated? Blood Type Antibody Screen Crossmatch 12/16/16 12/16/16 12/16/16 15:10 16:10 17:05 WBC RBC Hgb Hct MCV MCH MCHC RDW Plt Count MPV Neut % (Auto) Lymph % (Auto) [place] % (Auto) Eos % (Auto) Baso % (Auto) Neut # (Auto) Lymph # (Auto) [place] # (Auto) Eos # (Auto) Baso # (Auto) Total Counted Immature Gran % Nucleated RBC % Immature Gran # Segmented Neutrophils Band Neutrophils Lymphocytes Monocytes Nucleated RBCs # Platelet Estimate Hypochromasia Morphology Comment INR PT Patient/Control Mix Circ Anticoag PTT Patient Temperature ABG pH 7.412 7.423 7.433 ABG pH at Pt Temp ABG pCO2 38.3 34.0 L 33.4 L ABG pCO2 at Pt Temp ABG pO2 238.0 H 132.0 H 98.3 H ABG pO2 at Pt Temp ABG HCO3 24.5 23.2 23.4 ABG Total CO2 21.0 L 19.2 L 19.4 L ABG O2 Saturation 99.6 98.8 97.9 ABG Base Excess 0.0 -1.4 -1.2 ABG Sodium VBG pH VBG pCO2 VBG pO2 VBG HCO3 VBG Total CO2 VBG O2 Saturation VBG Base Excess Hemoglobin 14.0 13.6 L 13.1 L Hematocrit 43.0 41.6 L 40.4 L Potassium 3.7 3.9 3.9 Glucose 181 H 222 H 206 H Ionized Calcium FiO2 Sodium Chloride Carbon Dioxide Anion Gap BUN Creatinine GFR Calculation BUN/Creatinine Ratio POC Glucose Calculated Osmolality Calcium Venous Ioniz Calcium Magnesium Total Bilirubin Direct Bilirubin AST ALT Alkaline Phosphatase Total Creatine Kinase CK-MB (CK-2) CK and CKMB Interp Troponin I Total Protein Albumin Globulin Albumin/Globulin Ratio Urine Color Urine Appearance Urine pH Ur Specific [place] Urine Protein Urine Glucose (UA) Urine Ketones Urine Blood Urine Nitrate Urine Bilirubin Urine Urobilinogen Urine Leukocytes Urine RBC Urine WBC Urine Mucus Ur Culture Indicated? Blood Type Antibody Screen Crossmatch 12/16/16 12/16/16 12/16/16 17:52 20:10 21:12 WBC RBC Hgb Hct MCV MCH MCHC RDW Plt Count MPV Neut % (Auto) Lymph % (Auto) [place] % (Auto) Eos % (Auto) Baso % (Auto) Neut # (Auto) Lymph # (Auto) [place] # (Auto) Eos # (Auto) Baso # (Auto) Total Counted Immature Gran % Nucleated RBC % Immature Gran # Segmented Neutrophils Band Neutrophils Lymphocytes Monocytes Nucleated RBCs # Platelet Estimate Hypochromasia Morphology Comment INR PT Patient/Control Mix Circ Anticoag PTT Patient Temperature ABG pH 7.371 7.375 ABG pH at Pt Temp ABG pCO2 40.5 41.8 ABG pCO2 at Pt Temp ABG pO2 109.0 H 101.0 H ABG pO2 at Pt Temp ABG HCO3 23.0 23.8 ABG Total CO2 20.4 L 21.5 L ABG O2 Saturation 98.3 97.7 ABG Base Excess -1.7 -0.7 ABG Sodium VBG pH VBG pCO2 VBG pO2 VBG HCO3 VBG Total CO2 VBG O2 Saturation VBG Base Excess Hemoglobin 13.4 L 12.8 L Hematocrit 41.2 L 39.2 L Potassium 3.2 L 3.8 Glucose 202 H 146 H Ionized Calcium FiO2 Sodium Chloride Carbon Dioxide Anion Gap BUN Creatinine GFR Calculation BUN/Creatinine Ratio POC Glucose Calculated Osmolality Calcium Venous Ioniz Calcium Magnesium Total Bilirubin Direct Bilirubin AST ALT Alkaline Phosphatase Total Creatine Kinase 165 CK-MB (CK-2) 9.5 H CK and CKMB Interp 5.8 Troponin I 2.160 H D Total Protein Albumin Globulin Albumin/Globulin Ratio Urine Color Urine Appearance Urine pH Ur Specific [place] Urine Protein Urine Glucose (UA) Urine Ketones Urine Blood Urine Nitrate Urine Bilirubin Urine Urobilinogen Urine Leukocytes Urine RBC Urine WBC Urine Mucus Ur Culture Indicated? Blood Type Antibody Screen Crossmatch 12/16/16 12/16/16 12/17/16 21:35 23:45 00:35 WBC RBC Hgb Hct MCV MCH MCHC RDW Plt Count MPV Neut % (Auto) Lymph % (Auto) [place] % (Auto) Eos % (Auto) Baso % (Auto) Neut # (Auto) Lymph # (Auto) [place] # (Auto) Eos # (Auto) Baso # (Auto) Total Counted Immature Gran % Nucleated RBC % Immature Gran # Segmented Neutrophils Band Neutrophils Lymphocytes Monocytes Nucleated RBCs # Platelet Estimate Hypochromasia Morphology Comment INR PT Patient/Control Mix Circ Anticoag PTT Patient Temperature ABG pH 7.384 7.390 7.399 ABG pH at Pt Temp ABG pCO2 39.6 39.1 41.0 ABG pCO2 at Pt Temp ABG pO2 89.5 79.1 L 72.1 L ABG pO2 at Pt Temp ABG HCO3 23.4 23.5 24.7 ABG Total CO2 20.6 L 20.6 L 22.0 L ABG O2 Saturation 97.0 96.2 95.2 ABG Base Excess -1.2 -1.1 0.4 ABG Sodium VBG pH VBG pCO2 VBG pO2 VBG HCO3 VBG Total CO2 VBG O2 Saturation VBG Base Excess Hemoglobin 13.4 L 13.3 L 13.2 L Hematocrit 41.0 L 40.7 L 40.7 L Potassium 3.7 3.8 4.0 Glucose 132 H 125 H 107 H Ionized Calcium FiO2 Sodium Chloride Carbon Dioxide Anion Gap BUN Creatinine GFR Calculation BUN/Creatinine Ratio POC Glucose Calculated Osmolality Calcium Venous Ioniz Calcium Magnesium Total Bilirubin Direct Bilirubin AST ALT Alkaline Phosphatase Total Creatine Kinase CK-MB (CK-2) CK and CKMB Interp Troponin I Total Protein Albumin Globulin Albumin/Globulin Ratio Urine Color Urine Appearance Urine pH Ur Specific [place] Urine Protein Urine Glucose (UA) Urine Ketones Urine Blood Urine Nitrate Urine Bilirubin Urine Urobilinogen Urine Leukocytes Urine RBC Urine WBC Urine Mucus Ur Culture Indicated? Blood Type Antibody Screen Crossmatch 12/17/16 12/17/16 12/17/16 03:20 03:20 03:20 WBC RBC Hgb Hct MCV MCH MCHC RDW Plt Count MPV Neut % (Auto) Lymph % (Auto) [place] % (Auto) Eos % (Auto) Baso % (Auto) Neut # (Auto) Lymph # (Auto) [place] # (Auto) Eos # (Auto) Baso # (Auto) Total Counted Immature Gran % Nucleated RBC % Immature Gran # Segmented Neutrophils Band Neutrophils Lymphocytes Monocytes Nucleated RBCs # Platelet Estimate Hypochromasia Morphology Comment INR PT Patient/Control Mix Circ Anticoag PTT Patient Temperature ABG pH 7.414 ABG pH at Pt Temp ABG pCO2 40.2 ABG pCO2 at Pt Temp ABG pO2 80.4 ABG pO2 at Pt Temp ABG HCO3 25.3 ABG Total CO2 22.4 L ABG O2 Saturation 96.6 ABG Base Excess 1.1 ABG Sodium VBG pH VBG pCO2 VBG pO2 VBG HCO3 VBG Total CO2 VBG O2 Saturation VBG Base Excess Hemoglobin 13.1 L Hematocrit 40.2 L Potassium 4.2 4.0 Glucose 96 101 Ionized Calcium FiO2 Sodium 146 H Chloride 111 H Carbon Dioxide 25 Anion Gap 14.2 BUN 20 H Creatinine 0.70 GFR Calculation 145 BUN/Creatinine Ratio 28.00 H POC Glucose Calculated Osmolality 292.6 Calcium 8.6 Venous Ioniz Calcium Magnesium 1.9 Total Bilirubin 0.80 Direct Bilirubin 0.2 AST 44 H ALT 11 L Alkaline Phosphatase 71 Total Creatine Kinase 151 CK-MB (CK-2) 8.2 H CK and CKMB Interp 5.4 Troponin I 1.770 H Total Protein 5.5 L Albumin 3.4 Globulin 2.1 L Albumin/Globulin Ratio 1.6 Urine Color Urine Appearance Urine pH Ur Specific [place] Urine Protein Urine Glucose (UA) Urine Ketones Urine Blood Urine Nitrate Urine Bilirubin Urine Urobilinogen Urine Leukocytes Urine RBC Urine WBC Urine Mucus Ur Culture Indicated? Blood Type Antibody Screen Crossmatch 12/17/16 12/17/16 03:30 03:50 WBC 17.2 H D RBC 4.30 Hgb 12.6 L Hct 37.0 L MCV 86.0 L MCH 29 MCHC 34.1 RDW 12.6 Plt Count 204 D MPV 11.5 Neut % (Auto) 92.7 H Lymph % (Auto) 2.4 L [place] % (Auto) 4.3 Eos % (Auto) 0.0 Baso % (Auto) 0.2 Neut # (Auto) 15.9 H Lymph # (Auto) 0.4 L [place] # (Auto) 0.7 Eos # (Auto) 0.0 Baso # (Auto) 0.0 Total Counted 100 Immature Gran % 0.4 Nucleated RBC % 0.0 Immature Gran # 0.07 Segmented Neutrophils 90 H Band Neutrophils 2 Lymphocytes 6 L Monocytes 2 Nucleated RBCs # 0.00 Platelet Estimate Normal Hypochromasia Slight Morphology Comment INR PT Patient/Control Mix Circ Anticoag PTT Patient Temperature ABG pH 7.428 ABG pH at Pt Temp ABG pCO2 38.1 ABG pCO2 at Pt Temp ABG pO2 76.6 L ABG pO2 at Pt Temp ABG HCO3 24.6 ABG Total CO2 25.8 ABG O2 Saturation 95.8 ABG Base Excess 0.5 ABG Sodium VBG pH VBG pCO2 VBG pO2 VBG HCO3 VBG Total CO2 VBG O2 Saturation VBG Base Excess Hemoglobin 13.4 L Hematocrit 39.0 L Potassium 3.9 Glucose 98 Ionized Calcium FiO2 Sodium Chloride Carbon Dioxide Anion Gap BUN Creatinine GFR Calculation BUN/Creatinine Ratio POC Glucose Calculated Osmolality Calcium Venous Ioniz Calcium Magnesium Total Bilirubin Direct Bilirubin AST ALT Alkaline Phosphatase Total Creatine Kinase CK-MB (CK-2) CK and CKMB Interp Troponin I Total Protein Albumin Globulin Albumin/Globulin Ratio Urine Color Urine Appearance Urine pH Ur Specific [place] Urine Protein Urine Glucose (UA) Urine Ketones Urine Blood Urine Nitrate Urine Bilirubin Urine Urobilinogen Urine Leukocytes Urine RBC Urine WBC Urine Mucus Ur Culture Indicated? Blood Type Antibody Screen Crossmatch Quality Measures - VTE Contraindication to Pharmacological VTE Prophylaxis: High Risk of Bleeding
[2016-12-17] MEDS ORDERED: ACETAMINOPHEN 325 MG TABLET PO PRN (05:52)
[2016-12-17] MEDS ORDERED: POTASSIUM CHLORIDE 20 MEQ TABLET PO PRN (05:52)
[2016-12-17] MEDS ORDERED: DEXTROSE 50% 25 GM/50 ML VIAL IV PRN ×2 (05:52)
[2016-12-17] MEDS ORDERED: MAGNESIUM SULF RIDER 4 GM in PREMIX 1 EACH IV PRN (05:52)
[2016-12-17] MEDS ORDERED: MAGNESIUM SULF RIDER 2 GM in PREMIX 1 EACH IV PRN (05:52)
[2016-12-17] MEDS ORDERED: GLUCAGON 1 MG VIAL IM PRN ×2 (05:52)
[2016-12-17] MEDS ORDERED: ZALEPLON 5 MG CAPSULE PO PRN (05:52)
[2016-12-17] MEDS ORDERED: MORPHINE 2 MG/1 ML SYRINGE IV PRN (05:52)
[2016-12-17] MEDS ORDERED: MAGNESIUM HYDROXIDE SUSP 30 ML UDCUP PO PRN (05:52)
[2016-12-17] MEDS ORDERED: ALUMINUM/MAGNES/SIMETH MAX STR 30 ML UDCUP PO PRN (05:52)
[2016-12-17] MEDS ORDERED: ONDANSETRON 4 MG/2 ML VIAL IV PRN (05:52)
--- NOTE | 2016-12-17 07:44 | XRay Report ---
Exam: XR chest 1V portable Indication: Extubated, chest tube removal Comparison study: 12/16/2016 Findings: Endotracheal tube has been removed. Esophagogastric tube is still in position with the tip terminating below the [id number]. Right-sided central venous catheter is noted in place with the tip terminating near the mid right atrium. Low lung volumes are noted with minimal perihilar and basilar opacities likely representing atelectasis. There is no definite pneumothorax visualized. Osseous structures appear stable Impression: Interval extubation with residual perihilar and basilar opacities likely representing atelectasis. Trace left pleural effusion is also suspected. PROCEDURE INTERPRETED AT [facility] DEPARTMENT OF RADIOLOGY Final Report Signed by: Timothy Weiner
--- NOTE | 2016-12-17 07:53 | EKG Report ---
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
[2016-12-17] MEDS: SODIUM CHLOR 0.45% KCL 20 MEQ 20 MEQ/1,000 ML BAG IV SCH (08:39)
[2016-12-17] MEDS: INSULIN REGULAR 100 UNIT/ML SUBCUT SCH ×4 (08:39→21:42)
[2016-12-17] MEDS: CEFUROXIME INJ 1,500 MG in SODIUM CHLORIDE 0.9% 100 ML IV SCH (08:41)
[2016-12-17] MEDS: DOCUSATE SODIUM 100 MG CAPSULE PO SCH (09:19)
[2016-12-17] MEDS: PANTOPRAZOLE 40 MG TABLET PO SCH (09:19)
[2016-12-17] MEDS: FERROUS SULFATE 325 MG TABLET PO SCH (09:19)
[2016-12-17] MEDS: CHLORHEXIDINE 0.12% ORAL RINSE 60 ML BOTTLE SWISH/SPIT SCH ×3 (09:19→21:57)
[2016-12-17] MEDS: ASPIRIN EC 325 MG TABLET PO SCH (09:19)
[2016-12-17] MEDS: LISINOPRIL/HCTZ 20-25 MG TABLET PO SCH (12:30)
[2016-12-17] MEDS: ISOSORBIDE MONONITRATE 30 MG TABLET PO SCH (12:30)
[2016-12-17] MEDS: METOPROLOL TARTRATE 25 MG TABLET PO SCH ×2 (12:31→21:41)
[2016-12-17] MEDS: hydrALAZINE 25 MG TABLET PO SCH ×3 (12:31→21:41)
[2016-12-17] MEDS: SODIUM CHLORIDE 0.45% 1,000 ML IV SCH ×2 (15:50)
[2016-12-17] MEDS: oxyCODONE/ACETAMINOPHEN 5-325 MG TABLET PO PRN ×2 (16:02→21:42)
--- NOTE | 2016-12-17 16:44 | Anesthesia ---
Anesthesia Procedures - Arterial Line Consent obtained arterial line: written consent Time out performed arterial line: Yes Size (Gauge): 20 Technique used arterial line: guide wire technique Post-Procedure: line sutured into place, dry sterile dressing placed Patient tolerated procedure arterial line: well, no complications Complications art line: none Site: right
--- NOTE | 2016-12-17 16:45 | Anesthesia ---
Anesthesia Procedures - Central Venous Insert MSBT: pulse oximetry, EKG, BP cuff, oxygen via Procedure: after sterile technique was performed as outlined above, , ultrasound guidance was used to identify vessel, 18G introducer needle was passed into vessel under direct visualizatio, 7fr double lumen catheter was passed over guidewire without difficulty, triple lumen catheter was passed over guidewire without difficulty, catheter sutured into place and the ports flushed with NS/hepflush, sterlie dressing applied including the antibiotic disc, vital signs were stable throughout procedure, no apparent complications were noted, CXR to be obtained and read Ultrasound used: identify patency vessel Vein Cannulated: right internal juglar
[2016-12-17] MEDS ORDERED: chlorproMAZINE 25 MG TABLET PO PRN (20:05)
--- NOTE | 2016-12-17 20:42 | Hospitalist Consult Note ---
Assessment and Plan - Time spent with patient Time spent with patient: Less than 30 minutes (1) Diabetes mellitus Status: Chronic Assessment and plan: Patient has diabetes mellitus which is been treated with dietary measures only in the past. Will provide diabetic education, check hemoglobin A1c, continue Accu-Cheks with sliding scale insulin and consider addition of oral hypoglycemic agent at this time. I have instructed the patient he will need to follow-up on outpatient basis with primary care provider to continue optimal medical management. Current Visit: Yes Qualifiers: Diabetes mellitus type: type 2 (2) Coronary artery disease Status: Acute Assessment and plan: Patient is now status post CABG. Postop care per Dr. Gama. Current Visit: Yes (3) Hypertension Status: Chronic Assessment and plan: Blood pressure well controlled. Continue current medical regimen. Current Visit: Yes History of Present Illness - Data of Consult Patient: new to practice Consult date: 12/17/16 Requesting Physician: Chris Gama Primary care physician: STACY LINN - Consult Narrative Reason for consult: med management/DM History of present illness: Mr. Petty is a 66 year old male with history of hypertension and diabetes mellitus which has been treated with dietary measures only underwent coronary artery bypass grafting and is now postop on the telemetry floor. We will consulted to assist with medical management and diabetes. He is doing well postop and has no complaints. He states he is tolerating broth and Jell-O. His blood sugars have been running in the 200s. Dr. Brown initial history and physical and progress notes have been reviewed. Patient has no other complaints after 10 system review except for appropriate postop discomfort from his incision and tubes. CC: Chris Gama MD - Home Medications and Allergies Home Medications: Home Medications Medication Instructions Recorded Confirmed Type Isosorbide Mononitrate [Imdur] 30 mg PO DAILY 12/15/16 12/15/16 History Lisinopril/Hydrochlorothiazide 2 tablet PO DAILY 12/15/16 12/15/16 History [Lisinopril-Hctz 10-12.5 mg Tab] Metoprolol Tartrate Tab [Lopressor 25 mg PO BID 12/15/16 12/15/16 History Tab] Rosuvastatin Calcium [Crestor] 5 mg PO BEDTIME 12/15/16 12/15/16 History hydrALAZINE TAB [Apresoline Tab] 25 mg PO TID 12/15/16 12/15/16 History Allergies/Adverse Reactions: Allergies Allergy/AdvReac Type Severity Reaction Status Date / Time No Known Allergies Allergy Verified 12/15/16 12:03 Medical,Surgical,& Family Hx - Medical History Cardio: History of: Hypertension, DE Endocrine: History of: Diabetes Mellitus (NIDDM), Dyslipidemia Musculoskeletal: No history of: Amputation - Surgical History Thoracic Surgeries: Patient denies;: Organ Transplant Abdominal Surgeries: Patient denies: Abdominal Surgery Reproductive Surgeries: Patient denies;: Genitourinary Surgery - Family History Family History: Reports;: Family Diabetes, Family Heart Disease, Family Hypertension - Social History Smoking Status: Never smoker Frequency of Alcohol Use: None Type of Drug Use: None Marital Status: 12 point system: reviewed and no additional remarkable complaints except as stated Exam - Constitutional Vitals: Period Temp Pulse Resp BP Sys/Gomez Pulse Ox Last 24 Hr 96.7 F-99.0 F 60-95 10-84 124-184/46-93 94-99 General appearance: no acute distress - Head Head exam: Present: normocephalic, atraumatic - Eye Eye exam: Present: EOMI. Absent: scleral icterus Pupils: Present: KILEY - ENT ENT exam: Present: normal oropharynx - Neck Neck exam: Present: normal inspection. Absent: lymphadenopathy, meningismus, tenderness, thyromegaly - Respiratory Respiratory exam: Present: clear to auscultation bilaterally - Cardiovascular Cardiovascular exam: Present: regular rate and rhythm. Absent: systolic murmur , tachycardia - GI/Abdominal GI/Abdominal exam: Present: normal bowel sounds, soft. Absent: mass, tenderness , rebound - Extremities Exam Extremities exam: Present: normal capillary refill. Absent: calf tenderness, edema - Back Exam Back exam: Present: normal inspection - Neurological Exam Neurological exam: Present: alert, oriented X3, CN II-XII intact. Absent: motor sensory deficit - Psychiatric Psychiatric exam: Present: normal affect, normal mood. Absent: agitated, anxious - Skin Skin exam: Present: warm, dry, other (Dressings dry and intact) Results - Labs CBC & BMP: 12/17/16 03:30 12/17/16 03:20 Lab Results: I have reviewed the past 24 hour labs Quality Measures - VTE Contraindication to Pharmacological VTE Prophylaxis: High Risk of Bleeding Specialty Discharge - Follow Up or Referrals
[2016-12-17] MEDS: ROSUVASTATIN 10 MG TABLET PO SCH (21:41)
[2016-12-18] MEDS: INSULIN REGULAR 100 UNIT/ML SUBCUT SCH ×6 (01:13→21:30)
[2016-12-18] MEDS: SODIUM CHLOR 0.45% KCL 20 MEQ 20 MEQ/1,000 ML BAG IV SCH (05:51)
[2016-12-18 05:58] LABS: Basophils % 0.1 % (0.0-0.8); Hematocrit 39.2 VOL% (42.0-52.0); Hemoglobin 12.8 GM/DL (14.0-18.0); Immature Granulocytes % 0.6 %; Lymphocytes # 0.9 10*3/uL (1.4-4.0); Lymphocytes % 5.6 % (21.2-54.2); Mean Corpuscular HGB Conc 32.7 GM/DL (32-36); Mean Corpuscular Hemoglobin 30 PG (27-34); Mean Platelet Volume 11.2 FL (9.6-12.0); Monocytes % 6.5 % (1.7-12.7); Neutrophils % 87.2 % (38.7-73.9); Platelet Count 164 T/CUMM (130-400); Red Blood Count 4.31 MC/CUMM (3.8-5.5); White Blood Count 16.1 T/CUMM (4-12)
[2016-12-18] MEDS ORDERED: FUROSEMIDE 40 MG/4 ML VIAL IV ONE (06:00)
[2016-12-18 06:15] LABS: Alanine Aminotransferase 10 U/L (16-61); Albumin 3.3 G/DL (3.4-5.0); Alkaline Phosphatase 75 U/L (45-117); Aspartate Amino Transferase 47 U/L (0-37); Bilirubin,Direct 0.2 MG/DL (0.0-0.20); Bilirubin,Indirect 0.9 MG/DL (0.0-1.0); Blood Urea Nitrogen 33 MG/DL (7-18); Calcium 8.5 MG/DL (8.5-10.1); Glucose 291 MG/DL (74-106); Magnesium 2.4 MG/DL (1.8-2.4); Osmolality,Calculated 303.8 MOS/KG (273-304); Potassium 4.8 MMOL/L (3.5-5.1); Sodium 144 MMOL/L (136-145); Total Protein 5.6 G/DL (6.4-8.3)
--- NOTE | 2016-12-18 06:40 | Cardiothoracic Progress Note ---
Cardiothoracic Subjective Interval history: Patient looks and feels fine. His vital signs are stable and he is breathing comfortably. We will try to gradually increase his activities today according to routine postoperative protocol. Overall his progress is satisfactory. Exam (Progress Note) - Constitutional Vitals: Period Temp Pulse Resp BP Sys/Gomez Pulse Ox Last 24 Hr 96.9 F-99.0 F 60-95 14-84 125-184/54-93 90-99 Result/EKG - Labs CBC & BMP: 12/18/16 05:45 12/18/16 05:45 Labs: Laboratory Results - last 24 hr 12/16/16 12/16/16 12/16/16 13:07 14:05 18:56 WBC RBC Hgb Hct MCV MCH MCHC RDW Plt Count MPV Neut % (Auto) Lymph % (Auto) [place] % (Auto) Eos % (Auto) Baso % (Auto) Neut # (Auto) Lymph # (Auto) [place] # (Auto) Eos # (Auto) Baso # (Auto) Immature Gran % Nucleated RBC % Immature Gran # Nucleated RBCs # Sodium Potassium Chloride Carbon Dioxide Anion Gap BUN Creatinine GFR Calculation BUN/Creatinine Ratio Glucose POC Glucose 180 H 104 149 H Hemoglobin A1c Calculated Osmolality Calcium Magnesium Total Bilirubin Direct Bilirubin Indirect Bilirubin AST ALT Alkaline Phosphatase Total Creatine Kinase CK-MB (CK-2) Troponin I Total Protein Albumin Globulin Albumin/Globulin Ratio 12/16/16 12/16/16 12/17/16 21:08 23:07 02:12 WBC RBC Hgb Hct MCV MCH MCHC RDW Plt Count MPV Neut % (Auto) Lymph % (Auto) [place] % (Auto) Eos % (Auto) Baso % (Auto) Neut # (Auto) Lymph # (Auto) [place] # (Auto) Eos # (Auto) Baso # (Auto) Immature Gran % Nucleated RBC % Immature Gran # Nucleated RBCs # Sodium Potassium Chloride Carbon Dioxide Anion Gap BUN Creatinine GFR Calculation BUN/Creatinine Ratio Glucose POC Glucose 97 112 H 85 Hemoglobin A1c Calculated Osmolality Calcium Magnesium Total Bilirubin Direct Bilirubin Indirect Bilirubin AST ALT Alkaline Phosphatase Total Creatine Kinase CK-MB (CK-2) Troponin I Total Protein Albumin Globulin Albumin/Globulin Ratio 12/17/16 12/17/16 12/17/16 05:09 06:07 08:06 WBC RBC Hgb Hct MCV MCH MCHC RDW Plt Count MPV Neut % (Auto) Lymph % (Auto) [place] % (Auto) Eos % (Auto) Baso % (Auto) Neut # (Auto) Lymph # (Auto) [place] # (Auto) Eos # (Auto) Baso # (Auto) Immature Gran % Nucleated RBC % Immature Gran # Nucleated RBCs # Sodium Potassium Chloride Carbon Dioxide Anion Gap BUN Creatinine GFR Calculation BUN/Creatinine Ratio Glucose POC Glucose 96 130 H 153 H Hemoglobin A1c Calculated Osmolality Calcium Magnesium Total Bilirubin Direct Bilirubin Indirect Bilirubin AST ALT Alkaline Phosphatase Total Creatine Kinase CK-MB (CK-2) Troponin I Total Protein Albumin Globulin Albumin/Globulin Ratio 12/17/16 12/17/16 12/17/16 12:25 16:01 20:10 WBC RBC Hgb Hct MCV MCH MCHC RDW Plt Count MPV Neut % (Auto) Lymph % (Auto) [place] % (Auto) Eos % (Auto) Baso % (Auto) Neut # (Auto) Lymph # (Auto) [place] # (Auto) Eos # (Auto) Baso # (Auto) Immature Gran % Nucleated RBC % Immature Gran # Nucleated RBCs # Sodium Potassium Chloride Carbon Dioxide Anion Gap BUN Creatinine GFR Calculation BUN/Creatinine Ratio Glucose POC Glucose 205 H 247 H 289 H Hemoglobin A1c Calculated Osmolality Calcium Magnesium Total Bilirubin Direct Bilirubin Indirect Bilirubin AST ALT Alkaline Phosphatase Total Creatine Kinase CK-MB (CK-2) Troponin I Total Protein Albumin Globulin Albumin/Globulin Ratio 12/18/16 12/18/16 12/18/16 05:45 05:45 05:45 WBC 16.1 H RBC 4.31 Hgb 12.8 L Hct 39.2 L MCV 91.0 MCH 30 MCHC 32.7 RDW 13.0 Plt Count 164 MPV 11.2 Neut % (Auto) 87.2 H Lymph % (Auto) 5.6 L [place] % (Auto) 6.5 Eos % (Auto) 0.0 Baso % (Auto) 0.1 Neut # (Auto) 14.0 H Lymph # (Auto) 0.9 L [place] # (Auto) 1.0 H Eos # (Auto) 0.0 Baso # (Auto) 0.0 Immature Gran % 0.6 Nucleated RBC % 0.0 Immature Gran # 0.10 Nucleated RBCs # 0.00 Sodium 144 Potassium 4.8 Chloride 106 Carbon Dioxide 27 Anion Gap 15.8 H BUN 33 H Creatinine 0.90 GFR Calculation 120 BUN/Creatinine Ratio 36.00 H Glucose 291 H POC Glucose Hemoglobin A1c 11.7 H Calculated Osmolality 303.8 Calcium 8.5 Magnesium 2.4 Total Bilirubin 1.10 H Direct Bilirubin 0.2 Indirect Bilirubin 0.9 AST 47 H ALT 10 L Alkaline Phosphatase 75 Total Creatine Kinase 545 H D CK-MB (CK-2) 4.3 H Troponin I 1.240 H D Total Protein 5.6 L Albumin 3.3 L Globulin 2.3 Albumin/Globulin Ratio 1.4 Quality Measures - VTE Contraindication to Pharmacological VTE Prophylaxis: High Risk of Bleeding Specialty Discharge - Follow Up or Referrals
[2016-12-18] MEDS ORDERED: metFORMIN 500 MG TABLET PO SCH (08:00)
--- NOTE | 2016-12-18 08:45 | Hospitalist Progress Note ---
Assessment and Plan - Time spent with patient Time spent with patient: Less than 30 minutes (1) Diabetes mellitus Status: Chronic Assessment and plan: Patient has diabetes mellitus which is been treated with dietary measures only in the past. Will provide diabetic education, check hemoglobin A1c, continue Accu-Cheks with sliding scale insulin and consider addition of oral hypoglycemic agent at this time. I have instructed the patient he will need to follow-up on outpatient basis with primary care provider to continue optimal medical management. 12/18: Started metformin 500mg po BID, DM education, advance to DM diet per CV Surgery guidance. Discussed importance of outpt f/u as outpt with PCP for continued care and optimization of regimen. Current Visit: Yes Qualifiers: Diabetes mellitus type: type 2 (2) Coronary artery disease Status: Acute Assessment and plan: Patient is now status post CABG. Postop care per Dr. Gama. Current Visit: Yes (3) Hypertension Status: Chronic Assessment and plan: Blood pressure well controlled. Continue current medical regimen. Current Visit: Yes Hospitalist: Subjective Interval history: No new complaints. Ambulated to bathroom without CP or SOB. Tolerating liquids. Discussed BS and HgA1c. Exam - Constitutional Vitals: Period Temp Pulse Resp BP Sys/Gomez Pulse Ox Last 24 Hr 96.8 F-99.0 F 61-95 16-84 125-184/60-93 90-97 General appearance: no acute distress - Head Head exam: Present: normocephalic, atraumatic - Eye Eye exam: Present: EOMI Pupils: Present: KILEY - ENT ENT exam: Present: normal oropharynx - Respiratory Respiratory exam: Present: clear to auscultation bilaterally - Cardiovascular Cardiovascular exam: Present: regular rate and rhythm - GI/Abdominal GI/Abdominal exam: Present: normal bowel sounds, soft. Absent: tenderness - Extremities Exam Extremities exam: Absent: calf tenderness, edema - Back Exam Back exam: Present: normal inspection - Neurological Exam Neurological exam: Present: alert, oriented X3, CN II-XII intact. Absent: motor sensory deficit - Psychiatric Psychiatric exam: Present: normal affect, normal mood. Absent: agitated - Skin Skin exam: Present: warm, dry. Absent: rash Results - Labs CBC & BMP: 12/18/16 05:45 12/18/16 05:45 Lab Results: I have reviewed the past 24 hour labs Labs: HgbA1c 11.7 Quality Measures - VTE Contraindication to Pharmacological VTE Prophylaxis: High Risk of Bleeding Specialty Discharge - Follow Up or Referrals
--- NOTE | 2016-12-18 09:12 | XRay Report ---
Portable chest Date: 12/18/2016 Clinical history: Shortness of breath Comparison: 12/17/2016 Technique: Portable AP sitting chest Findings: Stable cardiomegaly with recent median sternotomy. Removal of nasogastric tube with stable right IJ CVP line. Residual diffuse atelectasis/edema at the lung bases with small left pleural effusion. Degenerative changes are noted. Impression: Removal of the nasogastric tube. Otherwise the chest appears fairly stable in appearance. PROCEDURE INTERPRETED AT [facility] DEPARTMENT OF RADIOLOGY Final Report Signed by: Dr. Julia Potter
[2016-12-18] MEDS: FERROUS SULFATE 325 MG TABLET PO SCH (09:59)
[2016-12-18] MEDS: LISINOPRIL/HCTZ 20-25 MG TABLET PO SCH (09:59)
[2016-12-18] MEDS: metFORMIN 500 MG TABLET PO SCH ×2 (10:00→17:07)
[2016-12-18] MEDS: PANTOPRAZOLE 40 MG TABLET PO SCH (10:00)
[2016-12-18] MEDS: ASPIRIN EC 325 MG TABLET PO SCH (10:00)
[2016-12-18] MEDS: DOCUSATE SODIUM 100 MG CAPSULE PO SCH (10:00)
[2016-12-18] MEDS: CHLORHEXIDINE 0.12% ORAL RINSE 60 ML BOTTLE SWISH/SPIT SCH ×2 (10:00→20:04)
[2016-12-18] MEDS: ISOSORBIDE MONONITRATE 30 MG TABLET PO SCH (10:00)
[2016-12-18] MEDS: hydrALAZINE 25 MG TABLET PO SCH ×3 (10:00→20:03)
[2016-12-18] MEDS: METOPROLOL TARTRATE 25 MG TABLET PO SCH ×2 (10:00→20:03)
[2016-12-18] MEDS: oxyCODONE/ACETAMINOPHEN 5-325 MG TABLET PO PRN (13:48)
[2016-12-18] MEDS: ROSUVASTATIN 10 MG TABLET PO SCH (20:03)
[2016-12-19] MEDS: oxyCODONE/ACETAMINOPHEN 5-325 MG TABLET PO PRN ×2 (03:00→10:41)
[2016-12-19 04:33] LABS: Basophils % 0.1 % (0.0-0.8); Eosinophils % 0.2 % (0.00-10.9); Hematocrit 38.5 VOL% (42.0-52.0); Hemoglobin 12.5 GM/DL (14.0-18.0); Immature Granulocytes % 0.3 %; Immature Granulocytes Absolute 0.03 #; Lymphocytes # 1.2 10*3/uL (1.4-4.0); Mean Corpuscular HGB Conc 32.5 GM/DL (32-36); Mean Corpuscular Hemoglobin 30 PG (27-34); Mean Platelet Volume 11.1 FL (9.6-12.0); Monocytes # 0.9 10*3/uL (0.11-0.8); Monocytes % 9.1 % (1.7-12.7); Neutrophils # 8.1 10*3/uL (1.4-7.4); Neutrophils % 78.3 % (38.7-73.9); Platelet Count 162 T/CUMM (130-400); Red Blood Count 4.23 MC/CUMM (3.8-5.5); Red Cell Distribution Width 12.9 % (9.3-17.3); White Blood Count 10.4 T/CUMM (4-12)
[2016-12-19 05:00] LABS: Alanine Aminotransferase 10 U/L (16-61); Albumin 3.2 G/DL (3.4-5.0); Alkaline Phosphatase 69 U/L (45-117); Aspartate Amino Transferase 48 U/L (0-37); Bilirubin,Direct 0.3 MG/DL (0.0-0.20); Bilirubin,Indirect 0.7 MG/DL (0.0-1.0); Blood Urea Nitrogen 29 MG/DL (7-18); Calcium 8.5 MG/DL (8.5-10.1); Glucose 161 MG/DL (74-106); Magnesium 2.3 MG/DL (1.8-2.4); Osmolality,Calculated 294.8 MOS/KG (273-304); Sodium 144 MMOL/L (136-145); Total Protein 5.6 G/DL (6.4-8.3)
[2016-12-19 05:07] LABS: Troponin I Only 0.842 NG/ML (0.00-0.045)
[2016-12-19] MEDS: INSULIN REGULAR 100 UNIT/ML SUBCUT SCH ×4 (08:49→21:41)
[2016-12-19] MEDS: FERROUS SULFATE 325 MG TABLET PO SCH (09:00)
[2016-12-19] MEDS: metFORMIN 500 MG TABLET PO SCH ×2 (09:00→16:54)
[2016-12-19] MEDS: DOCUSATE SODIUM 100 MG CAPSULE PO SCH (09:00)
[2016-12-19] MEDS: METOPROLOL TARTRATE 25 MG TABLET PO SCH ×2 (09:00→21:07)
[2016-12-19] MEDS: LISINOPRIL/HCTZ 20-25 MG TABLET PO SCH (09:00)
[2016-12-19] MEDS: ASPIRIN EC 325 MG TABLET PO SCH (09:01)
[2016-12-19] MEDS: hydrALAZINE 25 MG TABLET PO SCH ×3 (09:01→21:07)
[2016-12-19] MEDS: PANTOPRAZOLE 40 MG TABLET PO SCH (09:01)
[2016-12-19] MEDS: ISOSORBIDE MONONITRATE 30 MG TABLET PO SCH (09:01)
[2016-12-19] MEDS: CHLORHEXIDINE 0.12% ORAL RINSE 60 ML BOTTLE SWISH/SPIT SCH ×2 (09:07→21:41)
--- NOTE | 2016-12-19 09:11 | Hospitalist Progress Note ---
Assessment and Plan (1) Diabetes mellitus Status: Chronic Assessment and plan: Patient has diabetes mellitus which is been treated with dietary measures only in the past. Will provide diabetic education, check hemoglobin A1c, continue Accu-Cheks with sliding scale insulin and consider addition of oral hypoglycemic agent at this time. I have instructed the patient he will need to follow-up on outpatient basis with primary care provider to continue optimal medical management. 12/18: Started metformin 500mg po BID, DM education, advance to DM diet per CV Surgery guidance. Discussed importance of outpt f/u as outpt with PCP for continued care and optimization of regimen. Current Visit: Yes Qualifiers: Diabetes mellitus type: type 2 (2) Coronary artery disease Status: Acute Assessment and plan: Patient is now status post CABG. Postop care per Dr. Gama. Current Visit: Yes (3) Hypertension Status: Chronic Assessment and plan: Blood pressure well controlled. Continue current medical regimen. Current Visit: Yes Exam - Constitutional Vitals: Period Temp Pulse Resp BP Sys/Gomez Pulse Ox Last 24 Hr 97.4 F-98.5 F 70-102 18-20 121-147/67-78 90-96 Results - Labs CBC & BMP: 12/19/16 04:20 12/19/16 04:05 Quality Measures - VTE Contraindication to Pharmacological VTE Prophylaxis: High Risk of Bleeding Specialty Discharge - Follow Up or Referrals
--- NOTE | 2016-12-19 09:17 | Cardiothoracic Progress Note ---
Cardiothoracic Subjective Interval history: Patient is having no real problems. He does have some increased chest wall soreness today. Vital signs have been stable and he is breathing comfortably. We will gradually try to increase his level of activity. Exam (Progress Note) - Constitutional Vitals: Period Temp Pulse Resp BP Sys/Gomez Pulse Ox Last 24 Hr 97.4 F-98.5 F 70-102 18-20 121-147/67-78 90-96 Result/EKG - Labs CBC & BMP: 12/19/16 04:20 12/19/16 04:05 Labs: Laboratory Results - last 24 hr 12/18/16 12/18/16 12/18/16 11:18 15:56 20:06 WBC RBC Hgb Hct MCV MCH MCHC RDW Plt Count MPV Neut % (Auto) Lymph % (Auto) [place] % (Auto) Eos % (Auto) Baso % (Auto) Neut # (Auto) Lymph # (Auto) [place] # (Auto) Eos # (Auto) Baso # (Auto) Immature Gran % Nucleated RBC % Immature Gran # Nucleated RBCs # Sodium Potassium Chloride Carbon Dioxide Anion Gap BUN Creatinine GFR Calculation BUN/Creatinine Ratio Glucose POC Glucose 348 H 273 H 238 H Calculated Osmolality Calcium Magnesium Total Bilirubin Direct Bilirubin Indirect Bilirubin AST ALT Alkaline Phosphatase Total Creatine Kinase CK-MB (CK-2) Troponin I Total Protein Albumin Globulin Albumin/Globulin Ratio 12/19/16 12/19/16 04:05 04:20 WBC 10.4 D RBC 4.23 Hgb 12.5 L Hct 38.5 L MCV 91.0 MCH 30 MCHC 32.5 RDW 12.9 Plt Count 162 MPV 11.1 Neut % (Auto) 78.3 H Lymph % (Auto) 12.0 L [place] % (Auto) 9.1 Eos % (Auto) 0.2 Baso % (Auto) 0.1 Neut # (Auto) 8.1 H Lymph # (Auto) 1.2 L [place] # (Auto) 0.9 H Eos # (Auto) 0.0 Baso # (Auto) 0.0 Immature Gran % 0.3 Nucleated RBC % 0.0 Immature Gran # 0.03 Nucleated RBCs # 0.00 Sodium 144 Potassium 4.0 Chloride 104 Carbon Dioxide 28 Anion Gap 16.0 H BUN 29 H Creatinine 0.70 GFR Calculation 133 BUN/Creatinine Ratio 41.00 H Glucose 161 H POC Glucose Calculated Osmolality 294.8 Calcium 8.5 Magnesium 2.3 Total Bilirubin 1.00 Direct Bilirubin 0.3 H Indirect Bilirubin 0.7 AST 48 H ALT 10 L Alkaline Phosphatase 69 Total Creatine Kinase 397 H D CK-MB (CK-2) 1.3 Troponin I 0.842 H D Total Protein 5.6 L Albumin 3.2 L Globulin 2.4 Albumin/Globulin Ratio 1.3 Quality Measures - VTE Contraindication to Pharmacological VTE Prophylaxis: High Risk of Bleeding Specialty Discharge - Follow Up or Referrals
--- NOTE | 2016-12-19 09:33 | Hospitalist Progress Note ---
Assessment and Plan - Time spent with patient Time spent with patient: Less than 30 minutes (1) Diabetes mellitus Status: Chronic Assessment and plan: Patient has diabetes mellitus which is been treated with dietary measures only in the past. Will provide diabetic education, check hemoglobin A1c, continue Accu-Cheks with sliding scale insulin and consider addition of oral hypoglycemic agent at this time. I have instructed the patient he will need to follow-up on outpatient basis with primary care provider to continue optimal medical management. 12/18: Started metformin 500mg po BID, DM education, advance to DM diet per CV Surgery guidance. Discussed importance of outpt f/u as outpt with PCP for continued care and optimization of regimen. 12/19: Blood sugars are slowly improving. Continue Metformin at current doses and follow. Current Visit: Yes Qualifiers: Diabetes mellitus type: type 2 (2) Coronary artery disease Status: Acute Assessment and plan: Patient is now status post CABG. Postop care per Dr. Gama. Current Visit: Yes (3) Hypertension Status: Chronic Assessment and plan: Blood pressure well controlled. Continue current medical regimen. Current Visit: Yes Hospitalist: Subjective Interval history: Patient has no new complaints today. He he states he has been ambulatory in the hallway. Appetite is good and he is tolerating his diet. Blood sugars appear to be improving slowly. Exam - Constitutional Vitals: Period Temp Pulse Resp BP Sys/Gomez Pulse Ox Last 24 Hr 97.4 F-98.5 F 70-102 18-20 121-147/67-78 90-96 General appearance: no acute distress - Head Head exam: Present: normocephalic, atraumatic - Eye Eye exam: Present: EOMI Pupils: Present: KILEY - ENT ENT exam: Present: normal exam - Neck Neck exam: Absent: lymphadenopathy, meningismus, tenderness, thyromegaly - Respiratory Respiratory exam: Present: clear to auscultation bilaterally. Absent: rhonchi, wheezes - Cardiovascular Cardiovascular exam: Present: regular rate and rhythm - GI/Abdominal GI/Abdominal exam: Present: normal bowel sounds, soft. Absent: tenderness, rebound - Extremities Exam Extremities exam: Absent: calf tenderness, edema - Back Exam Back exam: Present: normal inspection - Neurological Exam Neurological exam: Present: alert, oriented X3, CN II-XII intact - Psychiatric Psychiatric exam: Present: normal affect, normal mood - Skin Skin exam: Present: warm, dry. Absent: rash Results - Labs CBC & BMP: 12/19/16 04:20 12/19/16 04:05 Lab Results: I have reviewed the past 24 hour labs Quality Measures - VTE Contraindication to Pharmacological VTE Prophylaxis: High Risk of Bleeding Specialty Discharge - Follow Up or Referrals
--- NOTE | 2016-12-19 10:50 | XRay Report ---
History: Shortness of breath Date: 12/19/2016 Study: Chest x-ray AP portable Comparison exam: 12/18/2016 The right IJ central line remains in stable position. There is continued cardiomegaly. The mediastinal contour is stable. The pulmonary vasculature is not engorged. There is some continued platelike atelectatic change in the lower lungs. There is no new or worsening infiltrate otherwise. There is mild left pleural effusion. The osseous structures are unchanged. Impression: Improved aeration in either lung base, though there is some current platelike bibasilar atelectasis. No pneumothorax. Stable cardiomegaly PROCEDURE INTERPRETED AT [facility] DEPARTMENT OF RADIOLOGY Final Report Signed by: Dr. Anjelica Santiago
[2016-12-19] MEDS: ROSUVASTATIN 10 MG TABLET PO SCH (21:07)
[2016-12-20] MEDS: oxyCODONE/ACETAMINOPHEN 5-325 MG TABLET PO PRN (03:09)
--- NOTE | 2016-12-20 08:23 | Discharge Summary ---
Hospital Course - Hospital Course Hospital Course: History of present illness: Patient is a 66-year-old man who was admitted to [facility] with symptoms of exertional chest discomfort. This was of a progressive nature and he underwent cardiac catheterization demonstrating critical two-vessel coronary artery disease not amenable to coronary angioplasty. Patient was referred for bypass surgery. His past medical history review of systems social history and family history are reviewed in his admission note. Hospital course: Patient was taken to surgery where two-vessel bypass grafting was performed graft to the right and circumflex marginal coronary arteries. Patient's post operative course was entirely uncomplicated and he was discharged home on the fourth postoperative day. He is to return for follow-up in 1 month and his discharge medications are listed below. Specialty Discharge - Follow Up or Referrals Follow up with: Chris Gama MD [Physician] - 1 Month Discharge Plan - Discharge Data Condition at Discharge: Stable Discharge Diet: advance to your usual diet Activity: resume usual activities as tolerated Hygiene: no restrictions Weight Bearing at Discharge: full weight bearing Driving: not for (2 weeks) - Discharge Medications No Action hydrALAZINE TAB [Apresoline Tab] 25 mg PO TID Metoprolol Tartrate Tab [Lopressor Tab] 25 mg PO BID Isosorbide Mononitrate [Imdur] 30 mg PO DAILY Rosuvastatin Calcium [Crestor] 5 mg PO BEDTIME Lisinopril/Hydrochlorothiazide [Lisinopril-Hctz 10-12.5 mg Tab] 2 tablet PO DAILY - Follow Up or Referral Follow Up: Chris Gama MD [Physician] - 1 Month - Forms/Instructions Instructions: Heart Healthy Diet (GEN), Coronary Artery Bypass Graft, Hunter Skin Diver (GEN), Sternal Precautions (GEN) Exam - Constitutional Vitals: Period Temp Pulse Resp BP Sys/Gomez Pulse Ox Last 24 Hr 96.8 F-98.3 F 67-83 16-20 129-156/65-76 90-96 Discharge Results Procedures and tests throughout hospitalization: Pending Orders 12/15/16 13:39 Fresh Frozen Plasma Routine Red Blood Cells Leuko Red Routine Single Donor Platelets Routine Type and Screen Routine 12/21/16 04:00 XR chest 2V IN AM Bilirubin Profile Adult IN AM Comp Blood Count Auto Diff IN AM Comprehensive Metabolic Panel IN AM Hepatic (Liver) Panel IN AM Magnesium IN AM Troponin,CKMB & Ck Total IN AM 12/22/16 04:00 XR chest 2V IN AM Bilirubin Profile Adult IN AM Comp Blood Count Auto Diff IN AM Comprehensive Metabolic Panel IN AM Hepatic (Liver) Panel IN AM Magnesium IN AM Troponin,CKMB & Ck Total IN AM Labs on day of discharge: Labs from last 24 hours 12/19/16 12/19/16 12/19/16 21:10 15:32 11:19 POC Glucose 231 H 276 H 241 H 12/19/16 07:50 POC Glucose 167 H DS: Provider Date of admission: 12/15/16 14:11 Primary care physician: MELVA MCNULTY Attending physician on admission: Chris Gama MD Consults: 12/17/16 05:52 Consult to Cardiac Rehabilitation [CONS] Routine Reason for Cardiac Rehabilitation: Other Consult Comment: Post CABG/heart surgery Consult to Diabetes Center, Educator [CONS] Routine Reason for Public Weigher: Diabetes Education Initial Insulin Education Consult Comment: insulin education Consult to Dietitian [CONS] Routine Reason for Dietitian: Dietary Consult Consult Comment: Cardiac, low salt, low cholesterol diet Consult to Physical Therapy [CONS] Routine Reason for Physical Therapy: Other Consult Comment: CV Rehab Consult to Physician [CONS] Routine Comment: Management of diabetes Consulting Provider: Consult to Specialist Group: Hospitalist 12/17/16 20:46 Consult to Diabetes Center, Educator [CONS] Routine Reason for Public Weigher: Diabetes Education Discharging clinician: Chris Gama MD Expected date of discharge: 12/20/16
[2016-12-20 08:25] VITALS: BP 159/74
--- NOTE | 2016-12-20 09:10 | Hospitalist Progress Note ---
Assessment and Plan - Time spent with patient Time spent with patient: Less than 30 minutes (1) Diabetes mellitus Status: Chronic Assessment and plan: Patient has diabetes mellitus which is been treated with dietary measures only in the past. Will provide diabetic education, check hemoglobin A1c, continue Accu-Cheks with sliding scale insulin and consider addition of oral hypoglycemic agent at this time. I have instructed the patient he will need to follow-up on outpatient basis with primary care provider to continue optimal medical management. 12/18: Started metformin 500mg po BID, DM education, advance to DM diet per CV Surgery guidance. Discussed importance of outpt f/u as outpt with PCP for continued care and optimization of regimen. 12/19: Blood sugars are slowly improving. Continue Metformin at current doses and follow. 12/20: Blood sugars continue to improve. Will discharge home on metformin 500 mg p.o. twice daily and I have asked him to follow-up with his primary care physician in 2 weeks. Current Visit: Yes Qualifiers: Diabetes mellitus type: type 2 (2) Coronary artery disease Status: Acute Assessment and plan: Patient is now status post CABG. Postop care per Dr. Gama. Current Visit: Yes (3) Hypertension Status: Chronic Assessment and plan: Blood pressure well controlled. Continue current medical regimen. Current Visit: Yes Hospitalist: Subjective Interval history: Mr. Ly is doing well without any complaints today. Note plans for discharge. Exam - Constitutional Vitals: Period Temp Pulse Resp BP Sys/Gomez Pulse Ox Last 24 Hr 96.8 F-98.3 F 67-83 16-20 129-159/65-76 90-96 General appearance: no acute distress - Head Head exam: Present: normocephalic, atraumatic - Eye Eye exam: Present: EOMI Pupils: Present: KILEY - ENT ENT exam: Present: normal exam - Neck Neck exam: Present: normal inspection - Respiratory Respiratory exam: Present: clear to auscultation bilaterally. Absent: rales, rhonchi, wheezes - Cardiovascular Cardiovascular exam: Present: regular rate and rhythm - GI/Abdominal GI/Abdominal exam: Present: normal bowel sounds, soft. Absent: mass, tenderness , rebound - Extremities Exam Extremities exam: Absent: calf tenderness, edema - Back Exam Back exam: Present: normal inspection - Neurological Exam Neurological exam: Present: alert, oriented X3, CN II-XII intact. Absent: motor sensory deficit - Psychiatric Psychiatric exam: Present: normal affect, normal mood. Absent: agitated, anxious - Skin Skin exam: Absent: rash Results - Labs CBC & BMP: 12/19/16 04:20 12/19/16 04:05 Lab Results: I have reviewed the past 24 hour labs Quality Measures - VTE Contraindication to Pharmacological VTE Prophylaxis: High Risk of Bleeding Specialty Discharge - Follow Up or Referrals Follow up with: Chris Gama MD [Physician] - 1 Month
[2016-12-20] MEDS: INSULIN REGULAR 100 UNIT/ML SUBCUT SCH (09:46)
[2016-12-20] MEDS: ASPIRIN EC 325 MG TABLET PO SCH (09:50)
[2016-12-20] MEDS: FERROUS SULFATE 325 MG TABLET PO SCH (09:50)
[2016-12-20] MEDS: metFORMIN 500 MG TABLET PO SCH (09:50)
[2016-12-20] MEDS: LISINOPRIL/HCTZ 20-25 MG TABLET PO SCH (09:50)
[2016-12-20] MEDS: ISOSORBIDE MONONITRATE 30 MG TABLET PO SCH (09:50)
[2016-12-20] MEDS: METOPROLOL TARTRATE 25 MG TABLET PO SCH (09:50)
[2016-12-20] MEDS: DOCUSATE SODIUM 100 MG CAPSULE PO SCH (09:50)
[2016-12-20] MEDS: hydrALAZINE 25 MG TABLET PO SCH (09:50)
[2016-12-20] MEDS: PANTOPRAZOLE 40 MG TABLET PO SCH (09:50)
[2016-12-20] MEDS: CHLORHEXIDINE 0.12% ORAL RINSE 60 ML BOTTLE SWISH/SPIT SCH (09:51)
== END 2016-12-20 10:50 | disposition home or self-care (01) | DRG 236 ==
LOC: N.TELES 10:13 → N.CVR 12-16 07:24 → EDBD 12-16 07:30 → N.TELES 12-17 14:56